=== PATIENT | male | born 1940 | race Two or more races ===

== ENCOUNTER → 2020-07-01 08:00 | Outpatient (CLI) | payer OTHER | END | disposition home or self-care (01) | LOC: LAB 08:00 → ADM 09:15 → CIR.AMB 07-08 07:00 → EDSTATUS 07-08 09:15 → CIR.AMB 07-08 09:15 | PROVIDERS: ATTEND Colon & Rectal Surgery | DX: K57.32 Diverticulitis of large intestine without perforation or abscess without bleeding (principal); K92.1 Melena; K81.1 Chronic cholecystitis; Z03.818 Encounter for observation for suspected exposure to other biological agents ruled out; Z20.822 Contact with and (suspected) exposure to COVID-19 ==